=== PATIENT | male | born 1970 | race Caucasian/White ===

== ENCOUNTER 2020-07-18 18:19 | Emergency (ER) | payer BC ==
--- NOTE | 2020-07-18 19:00 | EDM.PDOC ---
ED HPI GENERAL MEDICAL PROBLEM - General Chief Complaint: Lower Extremity Injury/Pain Stated Complaint: L LEG PAIN Time Seen by Provider: 07/18/20 18:42 Source of Information: Reports: Patient, RN Notes Reviewed History Limitations: Reports: No Limitations - History of Present Illness INITIAL COMMENTS - FREE TEXT/NARRATIVE: Patient is a 50-year-old male who presents to the ER for his left calf pain. Patient states that this is been present for roughly 2 weeks, but has progressively worsened since it started. He does note that he got the mold during the COVID-19 vaccine, last dose was on July 02. There is a pinpoint area to his left lower calf, that seems to be more tender than the rest. He notes that it is present at rest, does not seem to worsen when he is walking. He denies any trauma to the area, or any overly strenuous activity that could have aggravated issues. He is concerned about a possible blood clot, so comes to the ER for management. He did take a few doses of Aleve when it initially started hurting, and that seemed to help a little bit. He notes that he has been having some different side effects, which she is attributed to the vaccine he notes that when he woke up the next morning, he could not dorsiflex his left foot, until he took some Aleve. He is also had intermittent fevers, body aches and chills since getting the vaccine. Patient's primary care provider is in [facility]. He denies any other past medical history. He denies pain that travels up his leg, or travels further down. He is able to use his foot in all range of motion. Treatments SIDEHAND: Reports: Acetaminophen Left Lower Posterior Leg Pain Score (Numeric/FACES): 6 - Related Data Allergies Allergy/AdvReac Type Severity Reaction Status Date / Time No Known Allergies Allergy Verified 07/18/20 18:36 Home Meds: Home Meds Levothyroxine 150 mcg PO DAILY 07/18/20 [History] Linaclotide [Linzess] 290 mg PO ASDIRECTED 07/18/20 [History] Olmesartan/Hydrochlorothiazide [Benicar HCT 20-12.5 MG] 1 tab PO DAILY 07/18/20 [History] hydroCHLOROthiazide [Hydrochlorothiazide] 25 mg PO DAILY 07/18/20 [History] Past Medical History Cardiovascular History: Reports: Hypertension Endocrine/Metabolic History: Reports: Hypothyroidism Social & Family History - Tobacco Use Tobacco Use Status *Q: Former Tobacco User Used Tobacco, but Quit: Yes Month/Year Tobacco Last Used: 5 - Caffeine Use Caffeine Use: Reports: Coffee, Soda - Recreational Drug Use Recreational Drug Use: No Review of Systems - Review of Systems Review Of Systems: Comprehensive ROS is negative, except as noted in HPI. ED EXAM, GENERAL - Physical Exam Exam: See Below Exam Limited By: No Limitations General Appearance: Alert, WD/WN, No Apparent Distress Respiratory/Chest: No Respiratory Distress, Lungs Clear, Normal Breath Sounds, No Accessory Muscle Use, Chest Non-Tender Cardiovascular: Normal Peripheral Pulses, Regular Rate, Rhythm, No Edema Peripheral Pulses: 2+: Dorsalis Pedis (L), Dorsalis Pedis (R) Extremities: Normal Inspection, Normal Range of Motion, No Pedal Edema, Normal Capillary Refill, Alona's Sign (Left leg), Leg Pain (left calf) Neurological: Alert, Oriented, Normal Cognition, No Motor/Sensory Deficits Psychiatric: Normal Affect, Normal Mood Skin Exam: Warm, Dry, Intact, Normal Color, No Rash Course - Vital Signs Last Recorded V/S: Last Vital Signs Temp 97.4 F 07/18/20 18:45 Pulse 68 07/18/20 18:45 Resp 20 07/18/20 18:45 BP 152/80 H 07/18/20 18:45 Pulse Ox 98 07/18/20 18:45 - Re-Assessments/Exams Free Text/Narrative Re-Assessment/Exam: 07/18/20 19:01 Patient presents to the ER for the evaluation of his left calf pain. He is specifically worried about a blood clot at this time, we will perform ultrasound for evaluation of blood clot. 07/18/20 20:20 Patient ultrasound has been performed, no signs of a DVT within the left calf. No other abnormalities were appreciated. We will discharge patient home with general conservative recommendations and have him follow-up with his regular care provider for ongoing management. Departure - Departure Time of Disposition: 20:21 Disposition: Home, Self-Care 01 Condition: Good Clinical Impression: Pain of left calf - Discharge Information *PRESCRIPTION DRUG MONITORING PROGRAM REVIEWED*: No *COPY OF PRESCRIPTION DRUG MONITORING REPORT IN PATIENT ROBERTO: No Instructions: Muscle Strain, [id number] Referrals: George Palmer MD [Primary Care Provider] - Forms: ED Department Discharge Additional Instructions: You have been evaluated in the ED for your left calf pain. Your ultrasound demonstrated no sign of a DVT within your left calf. Please use ice/heat as tolerated to the affected area. You may take Tylenol 500 mg or ibuprofen 600mg q6 hrs for pain relief. Please do so until you have a tolerable level of pain with activity. Do not exceed 4000mg Tylenol or 3200mg ibuprofen in a 24 hour time period. Please return to ED if your symptoms should change or worsen. Sepsis Event Note (ED) - Evaluation Sepsis Screening Result: No Definite Risk - Focused Exam Vital Signs: Vital Signs Temp Pulse Resp BP Pulse Ox 07/18/20 18:45 97.4 F 68 20 152/80 H 98
--- NOTE | 2020-07-18 20:14 | US ---
Left lower extremity deep venous ultrasound: Duplex and color Doppler evaluation was obtained of the left common femoral, proximal greater saphenous, superficial femoral, popliteal, posterior tibial and peroneal veins. Right common femoral vein was also evaluated. Posterior calf in area of pain was also evaluated by real-time images. Comparison: No prior venous imaging is available. Findings: Normal phasic flow, augmentation and compression is seen. No ultrasound abnormality is seen within the posterior calf in area of described pain. Impression: 1. No findings of deep venous thrombosis. 2. No abnormality is seen within the posterior left calf. Diagnostic code #1
== END 2020-07-18 20:26 | disposition home or self-care (01) ==
LOC: JD.ED 18:19
DX: M79.662 Pain in left lower leg (principal); E03.9 Hypothyroidism, unspecified; I10 Essential (primary) hypertension; Z79.899 Other long term (current) drug therapy; Z87.891 Personal history of nicotine dependence
CPT/HCPCS: 93971-26-LT; 93971-LT; 99282; 99283-25

== ENCOUNTER 2020-08-06 20:38 | Emergency (ER) | payer BC ==
[2020-08-06] MEDS ORDERED: Sodium Chloride 0.9% 1,000 ML IV SCH (22:00)
--- NOTE | 2020-08-06 22:02 | EDM.PDOC ---
ED HPI GENERAL MEDICAL PROBLEM - General Chief Complaint: Lower Extremity Injury/Pain Stated Complaint: POSS BLOOD CLOT Time Seen by Provider: 08/06/20 21:13 Source of Information: Reports: Patient, Significant Other (Girlfriend) History Limitations: Reports: No Limitations - History of Present Illness INITIAL COMMENTS - FREE TEXT/NARRATIVE: Mr. Dave is a very pleasant 50-year-old gentleman who is now sent over from the walk-in clinic to have us evaluate him for a blood clot. The patient states that he received his first Moderna COVID vaccination on 06/04/2020, and his second on 07/02/2020. He states that he had some rapid palpitations following his first vaccination. Sometime between 07/04/2020 and 07/07/2020, he started having muscle pain in various places, that kept moving around. His states that he would also get winded easily. No chest pain. He was seen in this ED on 07/18/2020 with a complaint at that time of 2 weeks of pain in his left calf. He was found to have tenderness in a discrete area to his posterior calf. Work-up included a Doppler ultrasound of the left calf, which returned negative. He states that he subsequently followed up with his PCP in [place] on 07/23/2020, where some blood work was performed and was reportedly unremarkable. Nevertheless, he was prescribed a 6-day course of tapering steroids. He states that early in the course of the steroids, his symptoms improved, however, they returned by the time he was finishing the steroids. The patient states that he developed right calf pain this past 08/03/2020. He called his PCP about it today, and was instructed to go to the walk-in clinic to get a chest x-ray and D-dimer. He did. He was told that his chest x- ray was unremarkable, but that his D-dimer returned mildly elevated at 0.84, therefore he was called back by the walk-in clinic and instructed to go to the ER to be checked for a blood clot. Here in the ED, the patient is found to be hemodynamically stable, afebrile, saturating 98% on room air. He reports posterior right calf pain, but denies pain elsewhere. He appears to be comfortable, in no acute distress. Prior to early June, the patient denies having a recent fever, chills, sore throat, ear pain, nasal or sinus congestion, cough, dyspnea, chest pain, palpitations, nausea, vomiting, constipation, diarrhea, abdominal pain, urinary symptoms, recent weight gain or weight loss, recent bloody bowel movements or black bowel movements, recent joint aches, headaches, or rashes. The patient states that he has not been tested for COVID-19. The patient's PCP is Dr. George Palmer. His Geriatric Nursing Assistant is Dr. Ponce Solis. Right Lower Posterior Leg Pain Score (Numeric/FACES): 3 - Related Data Allergies Allergy/AdvReac Type Severity Reaction Status Date / Time No Known Allergies Allergy Verified 08/06/20 20:56 Home Meds: Home Meds Levothyroxine 175 mcg PO DAILY 07/18/20 [History] Linaclotide [Linzess] 290 mg PO ASDIRECTED PRN 07/18/20 [History] Olmesartan/Hydrochlorothiazide [Benicar HCT 20-12.5 MG] 1 tab PO DAILY 07/18/20 [History] hydroCHLOROthiazide [Hydrochlorothiazide] 25 mg PO DAILY 07/18/20 [History] Cholecalciferol (Vitamin D3) [Vitamin D] 5,000 tab PO DAILY 08/06/20 [History] Magnesium 250 mg PO DAILY 08/06/20 [History] Multivit-Min36/Iron/Folic Acid [Geritol Complete Tablet] 1 tab PO DAILY 08/06/20 [History] Past Medical History Cardiovascular History: Reports: Hypertension Gastrointestinal History: Reports: Colon Polyp, GERD (untreated), Irritable Bowel Syndrome Endocrine/Metabolic History: Reports: Hypothyroidism, Obesity/BMI 30+ - Infectious Disease History Infectious Disease History: Reports: Chicken Pox - Past Surgical History HEENT Surgical History: Reports: Adenoidectomy, Oral Surgery (dental extractions), Tonsillectomy GI Surgical History: Reports: Colonoscopy (x around 8), EGD (x 1 or 2) Neurological Surgical History: Reports: Lumbar Spine (Robert with subsequent removal) Dermatological Surgical History: Reports: Other (See Below) (Shrapnel extracton from face. Lipomas removed from multiple sites.) Social & Family History - Tobacco Use Tobacco Use Status *Q: Former Tobacco User Years of Tobacco use: 30 Packs/Tins Daily: 1 Month/Year Tobacco Last Used: Quit Feb 2005 Tobacco Use Comment: Started smoking 1985 - Caffeine Use Caffeine Use: Reports: Soda - Alcohol Use Alcohol Use History: Yes Alcohol Use Frequency: Socially - Recreational Drug Use Recreational Drug Use: No - Living Situation & Occupation Living situation: Reports: , with Significant Other (Girlfriend + her daughter) Occupation: Employed ([employer]) ED ROS GENERAL - Review of Systems Review Of Systems: Comprehensive ROS is negative, except as noted in HPI. ED EXAM, GENERAL - Physical Exam Exam: See Below Exam Limited By: No Limitations General Appearance: Alert, WD/WN, No Apparent Distress Eye Exam: Bilateral Eye: EOMI, Normal Inspection Ears: Normal External Exam, Hearing Grossly Normal Nose: Normal Inspection Throat/Mouth: Normal Inspection, Normal Lips, Normal Voice, No Airway Compromise Head: Atraumatic, Normocephalic Neck: Normal Inspection, Full Range of Motion Respiratory/Chest: No Respiratory Distress, Lungs Clear, Normal Breath Sounds, No Accessory Muscle Use Cardiovascular: Normal Peripheral Pulses, Regular Rate, Rhythm, No Gallop, No JVD, No Murmur, No Rub Peripheral Pulses: 3+: Radial (L), Radial (R) GI/Abdominal: Normal Bowel Sounds, Soft, Non-Tender, No Organomegaly, No Distention, No Abnormal Bruit, No Mass Back Exam: Normal Inspection, Full Range of Motion, NT Extremities: Normal Range of Motion, Normal Capillary Refill, Other (Significant tenderness to palpation of a discrete area within the patient's mid right calf, with no associated visible abnormalities, such as swelling, erythema, ecchymosis, or abrasion. Trace pretibial edema bilaterally. Neurovascular status of both lower extremities is intact.) Neurological: Alert, Oriented, Normal Cognition, No Motor/Sensory Deficits Psychiatric: Normal Affect Skin Exam: Warm, Dry, Intact, Normal Color, No Rash #1 Interpretation EKG Date: 08/06/20 Time: 22:01 Rhythm: NSR Rate (Beats/Min): 71 Kenna: Normal P-Wave: Present QRS: Other (Early transition) ST-T: Normal QT: Normal Comparison: NA - No Prior EKG Course - Vital Signs Last Recorded V/S: Last Vital Signs Temp 36.1 C 08/06/20 20:51 Pulse 91 08/06/20 20:51 Resp 20 08/06/20 20:51 BP 139/70 08/06/20 20:51 Pulse Ox 98 08/06/20 20:51 - Orders/Labs/Meds Orders: Active Orders 24 hr Category Date Time Status EKG Documentation Completion [RC] STAT Care 08/06/20 21:51 Active Ang Chest [CT] Stat Exams 08/06/20 21:53 Taken VL Duplex Lwr Ext Veins Ltd Rt [US] Stat Exams 08/06/20 21:55 Taken Sodium Chloride 0.9% [Normal Saline] 1,000 ml Med 08/06/20 22:00 Active IV ASDIRECTED Medication Orders Sodium Chloride (Normal Saline) 1,000 mls @ 150 mls/hr IV ASDIRECTED MARBIN Last Admin: 08/06/20 22:04 Dose: 150 mls/hr Documented by: GAYATRI Labs: Laboratory Tests 08/06/20 08/06/20 08/06/20 Range/Units 21:57 21:57 21:57 WBC 7.32 (4.23-9.07) K/mm3 RBC 4.63 (4.63-6.08) M/mm3 Hgb 12.5 L (13.7-17.5) gm/dl Hct 39.2 L (40.1-51.0) % MCV 84.7 (79.0-92.2) fl MCH 27.0 (25.7-32.2) pg MCHC 31.9 L (32.2-35.5) g/dl RDW Std Deviation 43.1 (35.1-43.9) fL Plt Count 233 (163-337) K/mm3 MPV 9.0 L (9.4-12.3) fl Neutrophils % (Manual) 61 H (40-60) % Band Neutrophils % 0 (0-10) % Lymphocytes % (Manual) 30 (20-40) % Atypical Lymphs % 0 % Monocytes % (Manual) 7 (2-10) % Eosinophils % (Manual) 2 (0.8-7.0) % Basophils % (Manual) 0 L (0.2-1.2) Platelet Estimate Adequate RBC Morph Comment Normal Sodium 139 (136-145) mEq/L Potassium 3.7 (3.5-5.1) mEq/L Chloride 103 (98-107) mEq/L Carbon Dioxide 27 (21-32) mEq/L Anion Gap 12.7 (5-15) BUN 27 H (7-18) mg/dL Creatinine 1.1 (0.7-1.3) mg/dL Est Cr Clr Drug Dosing 84.80 mL/min Estimated GFR (MDRD) > 60 (>60) mL/min BUN/Creatinine Ratio 24.5 H (14-18) Glucose 115 H (70-99) mg/dL Calcium 8.4 L (8.5-10.1) mg/dL Magnesium 3.2 H (1.8-2.4) mg/dL Total Bilirubin 0.3 (0.2-1.0) mg/dL AST 33 (15-37) U/L ALT 62 (16-63) U/L Alkaline Phosphatase 88 (46-116) U/L Creatine Kinase 142 (39-308) U/L Troponin I 1.488 H* (0.00-0.056) ng/mL C-Reactive Protein 4.6 H* (<1.0) mg/dL NT-Pro-B Natriuret Pep 23 (0-125) pg/mL Total Protein 7.2 (6.4-8.2) g/dl Albumin 3.1 L (3.4-5.0) g/dl Globulin 4.1 gm/dL Albumin/Globulin Ratio 0.8 L (1-2) TSH 3rd Generation 2.001 (0.358-3.74) uIU/mL SARS-CoV-2 RNA (PETER) (NEGATIVE) 08/06/20 Range/Units 22:05 WBC (4.23-9.07) K/mm3 RBC (4.63-6.08) M/mm3 Hgb (13.7-17.5) gm/dl Hct (40.1-51.0) % MCV (79.0-92.2) fl MCH (25.7-32.2) pg MCHC (32.2-35.5) g/dl RDW Std Deviation (35.1-43.9) fL Plt Count (163-337) K/mm3 MPV (9.4-12.3) fl Neutrophils % (Manual) (40-60) % Band Neutrophils % (0-10) % Lymphocytes % (Manual) (20-40) % Atypical Lymphs % % Monocytes % (Manual) (2-10) % Eosinophils % (Manual) (0.8-7.0) % Basophils % (Manual) (0.2-1.2) Platelet Estimate RBC Morph Comment Sodium (136-145) mEq/L Potassium (3.5-5.1) mEq/L Chloride (98-107) mEq/L Carbon Dioxide (21-32) mEq/L Anion Gap (5-15) BUN (7-18) mg/dL Creatinine (0.7-1.3) mg/dL Est Cr Clr Drug Dosing mL/min Estimated GFR (MDRD) (>60) mL/min BUN/Creatinine Ratio (14-18) Glucose (70-99) mg/dL Calcium (8.5-10.1) mg/dL Magnesium (1.8-2.4) mg/dL Total Bilirubin (0.2-1.0) mg/dL AST (15-37) U/L ALT (16-63) U/L Alkaline Phosphatase (46-116) U/L Creatine Kinase (39-308) U/L Troponin I (0.00-0.056) ng/mL C-Reactive Protein (<1.0) mg/dL NT-Pro-B Natriuret Pep (0-125) pg/mL Total Protein (6.4-8.2) g/dl Albumin (3.4-5.0) g/dl Globulin gm/dL Albumin/Globulin Ratio (1-2) TSH 3rd Generation (0.358-3.74) uIU/mL SARS-CoV-2 RNA (PETER) Negative (NEGATIVE) Meds: Medications Generic Name Dose Route Start Last Admin Trade Name Riccoq PRN Reason Stop Dose Admin Sodium Chloride 1,000 mls @ 150 mls/hr 08/06/20 22:00 08/06/20 22:04 Normal Saline IV 150 mls/hr ASDIRECTED [facility] Administration - Re-Assessments/Exams Free Text/Narrative Re-Assessment/Exam: 08/06/20 21:56 As above, the patient began having muscle pain in various places, along with being winded easily, since approximately 07/07/2020, following his second Moderna COVID vaccine. He was seen in this ED on 07/18/2020 for evaluation of left calf pain. A doppler ultrasound was negative. He followed up with his PCP in [place] on 07/23/2020, where some blood work was reportedly unremarkable, nevertheless, he was then treated with a 6-day tapering dose of steroids. He states that his symptoms improved initially, but had returned by the time he was finishing the steroids. He developed right calf pain this past Tuesday, therefore called his doctor today, and was instructed to go to the walk-in clinic to request a chest x-ray and D-dimer. The chest x-ray was reportedly negative, but the D-dimer returned as mildly elevated at 0.84. The patient was therefore called by the walk-in clinic with instruction of going directly to the ED to be evaluated for blood clot. On examination, the patient has significant tenderness to a discrete area within his mid right calf, with no tenderness to the remainder of the calf, and the remainder of his physical exam being unremarkable. The patient states that his right leg is edematous, although on examination, I do not see that he has any more edema to his right leg than his left. In reviewing this patient's case, it appears that the evaluations of his symptoms has been piecemeal, therefore, for today's purposes, I am recommending that we perform a number of tests to rule out a variety of conditions. The patient can then follow-up with his PCP in [place], who can then pick up man where we left off. I have therefore ordered numerous blood tests, a swab for the SARS-CoV-2 virus, a Doppler ultrasound of his right lower extremity, a CT angiogram of his chest, and an ECG. In the meantime, the patient will be given IV fluid. 08/06/20 23:34 The patient's CBC is remarkable for an H/H slightly depressed at 12.5/39.2, with the remainder of his CBC being unremarkable. His CMP is remarkable for a BUN slightly elevated 27, but with a Cr within normal limits at 1.1, and mild hyperglycemia of 115, and the remainder of his CMP being unremarkable. His magnesium level is elevated at 3.2. His TSH is within normal limits at 2.001. His CRP is elevated at 4.6. His troponin is elevated at 1.488. His pro-BNP is within normal limits at 23. His CPK is within normal limits at 1.42. His swab for the SARS-CoV-2 virus is negative. 08/06/20 23:51 Doppler ultrasound of the right lower extremity is read by [facility] as "Unremarkable ultrasound of the right lower extremity." 08/07/20 00:00 CT angiogram of the chest is read by [facility] as "No evidence of pulmonary embolus." 08/07/20 00:11 Test results discussed with the patient and his girlfriend. As above, today's work-up is completely unremarkable, with the exception of a mildly elevated CRP, and a significantly elevated troponin. 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 This may explain the myriad symptoms that he has been having since. I would like to discuss this with a [facility] [employer]. The patient prefers [facility]. 08/07/20 00:31 Case discussed with Eloise at [facility] at 00:23. Case then discussed with Dr. Pak, [facility] at [facility], at 00:28. 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 He recommended that the patient undergo an outpatient echocardiogram, then follow-up with a [facility] [employer]. 08/07/20 00:36 I relayed my conversation with Dr. Pak to the patient and his girlfriend. The patient is agreeable. We will have him follow-up with Dr. Palmer, who can order an outpatient echocardiogram, and also test the patient for COVID antibodies, which I explained to them is not available through the ED. She can then refer the patient to a [facility] of her choice. Departure - Departure Time of Disposition: 00:37 Disposition: Home, Self-Care 01 Condition: Good Clinical Impression: Elevated troponin, Right calf pain - Discharge Information *PRESCRIPTION DRUG MONITORING PROGRAM REVIEWED*: Not Applicable *COPY OF PRESCRIPTION DRUG MONITORING REPORT IN PATIENT ROBERTO: Not Applicable Referrals: George Palmer MD [Primary Care Provider] - Ponce Solis MD [Ordering Only Provider] - Forms: ED Department Discharge Additional Instructions: You were seen in the emergency room for right calf pain with a mildly elevated D-dimer. Work-up in the ER included numerous blood tests, a swab for the SARS-CoV-2 virus, a Doppler ultrasound of your right lower extremity, a CT angiogram of your chest, and an ECG. Your work-up found your CRP (a measure of inflammation) to be mildly elevated at 4.6, and your troponin (a heart enzyme) to be significantly elevated at 1.488. The remainder of your work-up was unremarkable. You do not have a blood clot in your lungs or in your leg. 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 Your case was discussed with the [facility] [employer] Dr. Pak, who recommended that you undergo an outpatient echocardiogram, followed by meeting with a [facility] as an outpatient. We recommend that you follow-up with your PCP, Dr. George Palmer, at the next available appointment. She can arrange for an outpatient echocardiogram, as well as testing you for COVID antibodies. If present, this would confirm that you had COVID-19. She can also arrange to have you seen by a [facility] of her choice. If any other problems, please do not hesitate to return to the ER. Sepsis Event Note (ED) - Evaluation Sepsis Screening Result: No Definite Risk - Focused Exam Vital Signs: Vital Signs Temp Pulse Resp BP Pulse Ox 08/06/20 20:51 36.1 C 91 20 139/70 98 - My Orders Last 24 Hours: My Active Orders 08/06/20 21:51 EKG Documentation Completion [RC] STAT 08/06/20 21:53 Ang Chest [CT] Stat 08/06/20 21:55 VL Duplex Lwr Ext Veins Ltd Rt [US] Stat 08/06/20 22:00 Sodium Chloride 0.9% [Normal Saline] 1,000 ml IV ASDIRECTED - Assessment/Plan Last 24 Hours: My Active Orders 08/06/20 21:51 EKG Documentation Completion [RC] STAT 08/06/20 21:53 Ang Chest [CT] Stat 08/06/20 21:55 VL Duplex Lwr Ext Veins Ltd Rt [US] Stat 08/06/20 22:00 Sodium Chloride 0.9% [Normal Saline] 1,000 ml IV ASDIRECTED
[2020-08-06] MEDS ORDERED: Acetaminophen/HYDROcodone 325-5 MG Tab PO ONE (22:12)
--- NOTE | 2020-08-07 07:48 | US ---
Right lower extremity deep venous ultrasound: Duplex and color Doppler evaluation was obtained of the right common femoral, proximal greater saphenous, superficial femoral, popliteal, posterior tibial and peroneal veins. Left common femoral vein was also evaluated. Comparison: Minimal portion of the right-sided veins were evaluated on left venous ultrasound of 07/18/20. Findings: Normal phasic flow, augmentation and compression are seen within the deep veins. Additional real-time images were obtained in the area of the right calf described as area of discomfort which show no discrete ultrasound finding. Impression: 1. No findings of deep venous thrombosis within the right lower extremity or left common femoral vein. 2. No ultrasound abnormality is seen within the area of right calf described as area of pain. Diagnostic code #1 I agree with preliminary report from patricia, finalized on 08/07/20, 12:19 AM CDT, code 1
--- NOTE | 2020-08-07 07:54 | CT ---
CT chest Technique: Multiple axial sections were obtained from above the lung apices inferiorly through the lung bases. Intravenous contrast was utilized. Study has been performed as a pulmonary angiogram protocol. Comparison: Prior MRI chest study of 01/29/20 Pulmonary arteries are fairly well opacified. No filling defects are seen to indicate pulmonary embolism. Minimal atherosclerotic change is seen within the thoracic aorta. Thoracic aorta shows no aneurysm. Mediastinum and hilar region shows small lymph nodes with no findings of adenopathy. No pericardial thickening is seen. Visualized upper abdominal structures show no acute abnormality. Lung window settings were reviewed which show a slight density within the lingula most likely representing minimal atelectasis. Lungs otherwise are clear with no acute parenchymal change being seen. Bone window settings were reviewed. Minimal degenerative change is seen within the spine. No acute osseous abnormality is appreciated. Impression: 1. Very slight atelectasis within the lingula. 2. No findings of pulmonary embolism. 3. Nothing acute is seen on CT study of the chest. Diagnostic code #2 I agree with preliminary report from [facility], finalized on 08/07/20, 12:57 AM CDT, code 1
== END 2020-08-07 00:01 | disposition home or self-care (01) ==
LOC: JD.ED 20:38
DX: M79.661 Pain in right lower leg (principal); R79.89 Other specified abnormal findings of blood chemistry; I10 Essential (primary) hypertension; E03.9 Hypothyroidism, unspecified; E66.9 Obesity, unspecified; Z20.822 Contact with and (suspected) exposure to COVID-19; Z87.891 Personal history of nicotine dependence; Z68.30 Body mass index [BMI] 30.0-30.9, adult
CPT/HCPCS: 36415; 71275; 80053; 82550; 83735; 83880; 84443; 84484; 85007; 85027; 86140; 87635; 93005; 93971; 99284; J7030; 93010; U0002

== ENCOUNTER 2020-08-22 18:00 | Emergency (ER) | payer BC ==
[2020-08-22] MEDS ORDERED: Sodium Chloride 0.9% 10 ML Syringe FLUSH PRN ×2 (19:06→21:04)
--- NOTE | 2020-08-22 20:03 | EDM.PDOC ---
ED HPI GENERAL MEDICAL PROBLEM - General Chief Complaint: Respiratory Problem Stated Complaint: RAPID HEART RATE /SOB SENT BY [facility] Time Seen by Provider: 08/22/20 18:51 Source of Information: Reports: Patient History Limitations: Reports: No Limitations - History of Present Illness INITIAL COMMENTS - FREE TEXT/NARRATIVE: The patient presents from the walk in clinic for headache, generalized weakness, fever, chills and no energy. This all started back in june after his second [employer] COVID vaccine. He got that on 07/02/20. He had muscle pain in different areas and shortness of breath. He has no chest pain. He was seen in our ER on 07/18/20 for left calf pain. The US was negative for DVT. He followed up with his PCP Dr Palmer in [place] on 07/23/20. He did more labs that looked good. He put him on 6 days of steroids and for a few days he felt good until he came to the end of taking them and he was back to the same symptoms. On 08/03/20 he had some right calf pain and went to the walk in clinic a D-dimer was done and it was slightly elevated at 0.84. He went to our ER on 08/06/20 for the right calf pain, and shortness of breath. He had an extensive work up that included an US of his leg, CTA of his chest, EKG and labs. The US was negative for DVT. His CT angio of his chest showed no PE or pneumonia. His CRP was elevated at 4.6. His troponin was elevated at 1.488. The ER doctor here consulted [facility] cardiology and talked with Dr Pak. 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 He saw his primary care doctor and an echo was done. He put him back on some steroids for 6 days. Again he felt good for a few days and then when they wear off he is right back to feeling back. This evening he has a headache, fever or 101.9, chills, shortness of breath, generalized weakness and no energy. He has no chest pain, cough, abdominal pain, nausea, vomiting or diarrhea. He has no appetite. His girlfriend says he has been confused today. Onset: Gradual Duration: Day(s): Location: Reports: Head Quality: Reports: Sharp Severity: Severe Improves with: Reports: None Worsens with: Reports: None Associated Symptoms: Denies: Chest Pain, Cough Headache Pain Score (Numeric/FACES): 10 - Related Data Allergies Allergy/AdvReac Type Severity Reaction Status Date / Time No Known Allergies Allergy Verified 08/22/20 18:12 Home Meds: Home Meds Levothyroxine 175 mcg PO DAILY 07/18/20 [History] Linaclotide [Linzess] 290 mg PO ASDIRECTED PRN 07/18/20 [History] Olmesartan/Hydrochlorothiazide [Benicar HCT 20-12.5 MG] 1 tab PO DAILY 07/18/20 [History] hydroCHLOROthiazide [Hydrochlorothiazide] 25 mg PO DAILY 07/18/20 [History] Cholecalciferol (Vitamin D3) [Vitamin D] 5,000 tab PO DAILY 08/06/20 [History] Magnesium 250 mg PO DAILY 08/06/20 [History] Multivit-Min36/Iron/Folic Acid [Geritol Complete Tablet] 1 tab PO DAILY 08/06/20 [History] Past Medical History Cardiovascular History: Reports: Hypertension Gastrointestinal History: Reports: Colon Polyp, GERD, Irritable Bowel Syndrome Endocrine/Metabolic History: Reports: Hypothyroidism, Obesity/BMI 30+ - Infectious Disease History Infectious Disease History: Reports: Chicken Pox - Past Surgical History HEENT Surgical History: Reports: Adenoidectomy, Oral Surgery, Tonsillectomy GI Surgical History: Reports: Colonoscopy, EGD Neurological Surgical History: Reports: Lumbar Spine Dermatological Surgical History: Reports: Other (See Below) Social & Family History - Family History Family Medical History: No Pertinent Family History - Tobacco Use Tobacco Use Status *Q: Former Tobacco User Years of Tobacco use: 20 Packs/Tins Daily: 1 Used Tobacco, but Quit: Yes Month/Year Tobacco Last Used: 2015 - Caffeine Use Caffeine Use: Reports: Coffee - Recreational Drug Use Recreational Drug Use: No - Living Situation & Occupation Living situation: Reports: , with Significant Other (Girlfriend + her daughter) Occupation: Employed ([employer]) ED [employer] [facility] - Review of Systems Review Of Systems: See Below Constitutional: Reports: Fever, Chills, Malaise, Weakness, Fatigue HEENT: Reports: No Symptoms Respiratory: Reports: Shortness of Breath. Denies: Cough Cardiovascular: Reports: No Symptoms Endocrine: Reports: Fatigue GI/Abdominal: Reports: Anorexia. Denies: Abdominal Pain, Diarrhea, Nausea, Vomiting : Reports: No Symptoms Musculoskeletal: Reports: No Symptoms ED EXAM, GENERAL - Physical Exam Exam: See Below Exam Limited By: No Limitations General Appearance: Alert, No Apparent Distress Ears: Normal External Exam Nose: Normal Inspection Head: Atraumatic, Normocephalic Neck: Normal Inspection Respiratory/Chest: No Respiratory Distress, Lungs Clear, Normal Breath Sounds Cardiovascular: Regular Rate, Rhythm, No Edema, No Murmur GI/Abdominal: Soft, Non-Tender, No Organomegaly, No Mass Back Exam: Normal Inspection Extremities: Normal Inspection Neurological: Alert, Oriented, No Motor/Sensory Deficits #1 Interpretation EKG Date: 08/22/20 Time: 19:26 Rhythm: NSR Rate (Beats/Min): 84 [place]: Normal P-Wave: Present QRS: Normal ST-T: Elevated (Normal early repol) QT: Normal Course - Vital Signs Last Recorded V/S: Last Vital Signs Temp 96.5 F L 08/22/20 18:13 Pulse 95 08/22/20 18:13 Resp 20 08/22/20 18:13 BP 126/64 08/22/20 18:13 Pulse Ox 97 08/22/20 18:13 - Orders/Labs/Meds Orders: Active Orders 24 hr Category Date Time Status Cardiac Monitoring [RC] . DIRECTED Care 08/22/20 19:06 Active EKG Documentation Completion [RC] STAT Care 08/22/20 19:07 Active Peripheral IV Care [RC] . DIRECTED Care 08/22/20 19:07 Active Peripheral IV Care [RC] . DIRECTED Care 08/22/20 21:05 Active CULTURE BLOOD [BC] Stat Lab 08/22/20 21:54 Ordered CULTURE BLOOD [BC] Stat Lab 08/22/20 21:54 Ordered LACTIC ACID [CHEM] Stat Lab 08/22/20 21:54 Ordered Sodium Chloride 0.9% [Normal Saline] 1,000 ml Med 08/22/20 22:00 Active IV ASDIRECTED Sodium Chloride 0.9% [Normal Saline] 100 ml Med 08/22/20 21:00 Active IV ASDIRECTED Sodium Chloride 0.9% [Saline Flush] Med 08/22/20 19:06 Active 10 ml FLUSH ASDIRECTED PRN Sodium Chloride 0.9% [Saline Flush] Med 08/22/20 21:04 Active 10 ml FLUSH ASDIRECTED PRN Sodium Chloride 0.9% [Saline Flush] Med 08/22/20 21:00 Active 10 ml FLUSH BOLUS Blood Culture x2 Reflex Set [OM.PC] Stat Ot 08/22/20 21:54 Ordered Peripheral IV Insertion Adult [OM.PC] Routine Oth 08/22/20 21:04 Ordered Peripheral IV Insertion Adult [OM.PC] Stat Ot 08/22/20 19:06 Ordered Medication Orders Sodium Chloride (Normal Saline) 100 mls @ 60 drops/min IV ASDIRECTED MARBIN Last Admin: 08/22/20 21:03 Dose: 60 drops/min Documented by: ONEIGIN Sodium Chloride (Normal Saline) 1,000 mls @ 150 mls/hr IV ASDIRECTED MARBIN Last Admin: 08/22/20 22:11 Dose: 150 mls/hr Documented by: DANIELA Sodium Chloride (Sodium Chloride 0.9% 10 Ml Syringe) 10 ml FLUSH ASDIRECTED PRN PRN Reason: Keep Vein Open Last Admin: 08/22/20 19:39 Dose: 10 ml Documented by: DANIELA Sodium Chloride (Sodium Chloride 0.9% 10 Ml Syringe) 10 ml FLUSH BOLUS MARBIN Last Admin: 08/22/20 21:03 Dose: 10 ml Documented by: KEHINDEIGIN Sodium Chloride (Sodium Chloride 0.9% 10 Ml Syringe) 10 ml FLUSH ASDIRECTED PRN PRN Reason: Keep Vein Open Last Admin: 08/22/20 21:45 Dose: 10 ml Documented by: FREDRICK Labs: Laboratory Tests 08/22/20 08/22/20 08/22/20 Range/Units 18:26 19:45 19:45 WBC 10.02 H (4.23-9.07) K/mm3 RBC 4.72 (4.63-6.08) M/mm3 Hgb 12.8 L (13.7-17.5) gm/dl Hct 38.6 L (40.1-51.0) % MCV 81.8 (79.0-92.2) fl MCH 27.1 (25.7-32.2) pg MCHC 33.2 (32.2-35.5) g/dl RDW Std Deviation 42.7 (35.1-43.9) fL Plt Count 227 (163-337) K/mm3 MPV 8.8 L (9.4-12.3) fl Neut % (Auto) 73.1 H (34.0-67.9) % Lymph % (Auto) 17.1 L (21.8-53.1) % [place] % (Auto) 9.0 (5.3-12.2) % Eos % (Auto) 0.6 L (0.8-7.0) Baso % (Auto) 0.2 (0.1-1.2) % Neut # (Auto) 7.33 H (1.78-5.38) K/mm3 Lymph # (Auto) 1.71 (1.32-3.57) K/mm3 [place] # (Auto) 0.90 H (0.30-0.82) K/mm3 Eos # (Auto) 0.06 (0.04-0.54) K/mm3 Baso # (Auto) 0.02 (0.01-0.08) K/mm3 Manual Slide Review Normal smear ESR 31 H (0-15) mm/hr PT (9.7-12.0) SECONDS INR APTT (21.7-31.4) SECONDS D-Dimer, Quantitative (0.19-0.50) mg/L Sodium (136-145) mEq/L Potassium (3.5-5.1) mEq/L Chloride (98-107) mEq/L Carbon Dioxide (21-32) mEq/L Anion Gap (5-15) BUN (7-18) mg/dL Creatinine (0.7-1.3) mg/dL Est Cr Clr Drug Dosing mL/min Estimated GFR (MDRD) (>60) mL/min BUN/Creatinine Ratio (14-18) Glucose (70-99) mg/dL Calcium (8.5-10.1) mg/dL Total Bilirubin (0.2-1.0) mg/dL AST (15-37) U/L ALT (16-63) U/L Alkaline Phosphatase (46-116) U/L Troponin I (0.00-0.056) ng/mL C-Reactive Protein (<1.0) mg/dL NT-Pro-B Natriuret Pep (0-125) pg/mL Total Protein (6.4-8.2) g/dl Albumin (3.4-5.0) g/dl Globulin gm/dL Albumin/Globulin Ratio (1-2) SARS-CoV-2 RNA (PETER) Negative (NEGATIVE) 08/22/20 08/22/20 08/22/20 Range/Units 19:45 19:45 19:45 WBC (4.23-9.07) K/mm3 RBC (4.63-6.08) M/mm3 Hgb (13.7-17.5) gm/dl Hct (40.1-51.0) % MCV (79.0-92.2) fl MCH (25.7-32.2) pg MCHC (32.2-35.5) g/dl RDW Std Deviation (35.1-43.9) fL Plt Count (163-337) K/mm3 MPV (9.4-12.3) fl Neut % (Auto) (34.0-67.9) % Lymph % (Auto) (21.8-53.1) % [place] % (Auto) (5.3-12.2) % Eos % (Auto) (0.8-7.0) Baso % (Auto) (0.1-1.2) % Neut # (Auto) (1.78-5.38) K/mm3 Lymph # (Auto) (1.32-3.57) K/mm3 [place] # (Auto) (0.30-0.82) K/mm3 Eos # (Auto) (0.04-0.54) K/mm3 Baso # (Auto) (0.01-0.08) K/mm3 Manual Slide Review ESR (0-15) mm/hr PT 11.9 (9.7-12.0) SECONDS INR 1.11 APTT 26.4 (21.7-31.4) SECONDS D-Dimer, Quantitative 1.01 H (0.19-0.50) mg/L Sodium 132 L (136-145) mEq/L Potassium 3.7 (3.5-5.1) mEq/L Chloride 97 L (98-107) mEq/L Carbon Dioxide 24 (21-32) mEq/L Anion Gap 14.7 (5-15) BUN 26 H (7-18) mg/dL Creatinine 1.4 H (0.7-1.3) mg/dL Est Cr Clr Drug Dosing 64.53 mL/min Estimated GFR (MDRD) 54 (>60) mL/min BUN/Creatinine Ratio 18.6 H (14-18) Glucose 97 (70-99) mg/dL Calcium 8.6 (8.5-10.1) mg/dL Total Bilirubin 0.8 (0.2-1.0) mg/dL AST 18 (15-37) U/L ALT 46 (16-63) U/L Alkaline Phosphatase 92 (46-116) U/L Troponin I 0.525 H* (0.00-0.056) ng/mL C-Reactive Protein 10.2 H* (<1.0) mg/dL NT-Pro-B Natriuret Pep 123 (0-125) pg/mL Total Protein 7.3 (6.4-8.2) g/dl Albumin 2.9 L (3.4-5.0) g/dl Globulin 4.4 gm/dL Albumin/Globulin Ratio 0.7 L (1-2) SARS-CoV-2 RNA (PETER) (NEGATIVE) Meds: Medications Generic Name Dose Route Start Last Admin Trade Name Freq PRN Reason Stop Dose Admin Sodium Chloride 100 mls @ 60 drops/min 08/22/20 21:00 08/22/20 21:03 Normal Saline IV 60 drops/min ASDIRECTED MARBIN Administration Sodium Chloride 1,000 mls @ 150 mls/hr 08/22/20 22:00 08/22/20 22:11 Normal Saline IV 150 mls/hr ASDIRECTED MARBIN Administration Sodium Chloride 10 ml 08/22/20 19:06 08/22/20 19:39 Sodium Chloride 0.9% 10 Ml Syringe FLUSH 10 ml ASDIRECTED PRN Administration Keep Vein Open Sodium Chloride 10 ml 08/22/20 21:00 08/22/20 21:03 Sodium Chloride 0.9% 10 Ml Syringe FLUSH 10 ml BOLUS MARBIN Administration Sodium Chloride 10 ml 08/22/20 21:04 08/22/20 21:45 Sodium Chloride 0.9% 10 Ml Syringe FLUSH 10 ml ASDIRECTED PRN Administration Keep Vein Open Discontinued Medications Generic Name Dose Route Start Last Admin Trade Name Freq PRN Reason Stop Dose Admin Hydromorphone HCl 0.5 mg 08/22/20 21:12 08/22/20 21:22 Hydromorphone 0.5 Mg/0.5 Ml Syringe IVPUSH 08/22/20 21:13 0.5 mg ONETIME ONE Administration Iopamidol 100 ml 08/22/20 20:48 08/22/20 21:03 Iopamidol 755 Mg/Ml 100 Ml Bottle IVPUSH 08/22/20 20:49 100 ml ONETIME ONE Administration Methylprednisolone Sodium Succinate 125 mg 08/22/20 21:49 08/22/20 22:04 Methylprednisolone Sodium Succinate 125 Mg/2 Ml Sdv IVPUSH 08/22/20 21:50 125 mg ONETIME ONE Administration - Re-Assessments/Exams Free Text/Narrative Re-Assessment/Exam: 08/22/20 20:05 I ordered an IV saline lock, EKG, CT of his head, CT angio of his chest and labs. His EKG shows a NSR with no acute changes. 08/22/20 22:20 His WBC was elevated at 10.02. His ESR is elevated at 31. His D-dimer is elevated at 1.01. His Na is low at 132. His creatinine is elevated at 1.4. his troponin is elevated at 0.525. His CRP is elevated at 10.2. His COVID is negative. The CT of his head shows nothing acute. The CT angio of his chest shows no PE or pneumonia. There is some atalectasis at the [place]. He still has a severe headache. I ordered some dilaudid for that. His troponin is better from then the 1.488 from the 9th but still elevated. I am concerned he may have a vasculitis. I ordered some solu-medrol 125mg IV. I have added blood cultures and lactic acid. I feel he needs to be admitted but not here somewhere that has multispecialty care and possibly an MRI. I called [facility] in [place] and talked with Dr Sales the hospitalist auction clerk and she accepted the patient. He will be going by ambulance. He had more pain so I ordered more dilaudid 1mg IV. Departure - Departure Time of Disposition: 22:35 Disposition: DC/Tfer to [facility] 02 Condition: Fair Clinical Impression: Elevated troponin, Fever, unknown origin, Renal insufficiency Headache Qualifiers: Headache type: other headache syndrome Qualified Code(s): G44.89 - Other headache syndrome - Discharge Information Referrals: George Palmer MD [Primary Care Provider] - Forms: ED Department Discharge Sepsis Event Note (ED) - Evaluation Sepsis Screening Result: Possible Sepsis Risk - Focused Exam Vital Signs: Vital Signs Temp Pulse Resp BP Pulse Ox 08/22/20 18:13 96.5 F L 95 20 126/64 97 - My Orders Last 24 Hours: My Active Orders 08/22/20 19:06 Cardiac Monitoring [RC] . DIRECTED Sodium Chloride 0.9% [Saline Flush] 10 ml FLUSH ASDIRECTED PRN Peripheral IV Insertion Adult [OM.PC] Stat 08/22/20 19:07 EKG Documentation Completion [RC] STAT Peripheral IV Care [RC] . DIRECTED 08/22/20 21:00 Sodium Chloride 0.9% [Normal Saline] 100 ml IV ASDIRECTED Sodium Chloride 0.9% [Saline Flush] 10 ml FLUSH BOLUS 08/22/20 21:04 Sodium Chloride 0.9% [Saline Flush] 10 ml FLUSH ASDIRECTED PRN Peripheral IV Insertion Adult [OM.PC] Routine 08/22/20 21:05 Peripheral IV Care [RC] . DIRECTED 08/22/20 21:54 CULTURE BLOOD [BC] Stat CULTURE BLOOD [BC] Stat LACTIC ACID [CHEM] Stat Blood Culture x2 Reflex Set [OM.PC] Stat 08/22/20 22:00 Sodium Chloride 0.9% [Normal Saline] 1,000 ml IV ASDIRECTED - Assessment/Plan Last 24 Hours: My Active Orders 08/22/20 19:06 Cardiac Monitoring [RC] . DIRECTED Sodium Chloride 0.9% [Saline Flush] 10 ml FLUSH ASDIRECTED PRN Peripheral IV Insertion Adult [OM.PC] Stat 08/22/20 19:07 EKG Documentation Completion [RC] STAT Peripheral IV Care [RC] . DIRECTED 08/22/20 21:00 Sodium Chloride 0.9% [Normal Saline] 100 ml IV ASDIRECTED Sodium Chloride 0.9% [Saline Flush] 10 ml FLUSH BOLUS 08/22/20 21:04 Sodium Chloride 0.9% [Saline Flush] 10 ml FLUSH ASDIRECTED PRN Peripheral IV Insertion Adult [OM.PC] Routine 08/22/20 21:05 Peripheral IV Care [RC] . DIRECTED 08/22/20 21:54 CULTURE BLOOD [BC] Stat CULTURE BLOOD [BC] Stat LACTIC ACID [CHEM] Stat Blood Culture x2 Reflex Set [OM.PC] Stat 08/22/20 22:00 Sodium Chloride 0.9% [Normal Saline] 1,000 ml IV ASDIRECTED
[2020-08-22] MEDS ORDERED: Iopamidol 755 Mg/ML 100 ML Bottle IVPUSH ONE (20:48)
[2020-08-22] MEDS ORDERED: Sodium Chloride 0.9% 100 ML IV SCH (21:00)
[2020-08-22] MEDS ORDERED: Sodium Chloride 0.9% 10 ML Syringe FLUSH SCH (21:00)
--- NOTE | 2020-08-22 21:07 | CT ---
Head CT Technique: Multiple axial sections through the brain were obtained. Intravenous contrast was not utilized. Reconstructed coronal and sagittal images were obtained. Comparison: No prior intracranial imaging is available. Findings: Ventricles along with basal cisterns and sulci over the convexities are within normal limits for the patient's age. No abnormal parenchymal densities are seen. No evidence of intracranial hemorrhage is seen. No midline shift or mass-effect is seen. Bone window settings were reviewed. Visualized mastoid sinuses are clear. There is minimal mucosal thickening within the ethmoid and frontal sinuses. No acute calvarial abnormality is seen. Impression: 1. Minimal mucosal thickening within the ethmoid and frontal sinuses which is believed to be incidental. 2. No acute intracranial abnormality is appreciated. Diagnostic code #2
--- NOTE | 2020-08-22 21:08 | CT ---
CT chest Technique: Multiple axial sections through the chest were obtained. Intravenous contrast was utilized. Study has been performed as a pulmonary angiogram protocol. Comparison: Prior CT chest study of 08/06/20. Findings: Pulmonary arteries are are somewhat less than optimally opacified. No filling defects within the main or segmental branches or proximal subsegmental branches are seen to indicate pulmonary embolism. Very distal pulmonary emboli could easily be missed. Thoracic aorta shows no aneurysm. Mediastinum and hilar region show no adenopathy. No axillary adenopathy is seen. Small portion of the visualized upper abdominal structures show nothing acute. Lung window settings were reviewed show mild atelectasis within the lingula. No acute parenchymal change is otherwise seen within either lung. Bone window settings were reviewed which show no acute osseous finding. Impression: 1. Slightly less than optimal opacification of the pulmonary arteries. No definite findings of pulmonary embolism are seen within the main, segmental or proximal subsegmental arteries. Smaller distal subsegmental pulmonary emboli could be missed. 2. Mild atelectasis seen within lingula. 3. Nothing acute is otherwise seen on CT study of the chest. Diagnostic code #2
[2020-08-22] MEDS ORDERED: HYDROmorphone 0.5 MG/0.5 ML Syringe IVPUSH ONE (21:12)
[2020-08-22] MEDS ORDERED: methylPREDNISolone Sodium Succinate 125 MG/2 ML SDV IVPUSH ONE (21:49)
[2020-08-22] MEDS ORDERED: Sodium Chloride 0.9% 1,000 ML IV SCH (22:00)
[2020-08-22] MEDS ORDERED: HYDROmorphone 1 MG/ML Syringe IVPUSH ONE (22:28)
== END 2020-08-22 23:15 ==
LOC: JD.ED 18:00
DX: R50.9 Fever, unspecified (principal); G44.89 Other headache syndrome; N28.9 Disorder of kidney and ureter, unspecified; R79.89 Other specified abnormal findings of blood chemistry; I10 Essential (primary) hypertension; E03.9 Hypothyroidism, unspecified; E66.9 Obesity, unspecified; Z68.30 Body mass index [BMI] 30.0-30.9, adult; Z20.822 Contact with and (suspected) exposure to COVID-19; Z87.891 Personal history of nicotine dependence
CPT/HCPCS: 36415; 70450; 71275; 80053; 83605; 83880; 84484; 85025; 85379; 85610; 85652; 85730; 86140; 87040; 87635; 93005; 96374; 96375; 96376; 99285; J1170; J2930; J7030; Q9967; 87077; 87186; U0002

== ENCOUNTER 2022-09-06 01:07 | Emergency (ER) | payer BC, OTHER ==
[2022-09-06 01:35] LABS: APPEARANCE,URINE CLEAR (Clear); BILIRUBIN,URINE NEGATIVE (Negative); COLOR,URINE YELLOW (Yellow); GLUCOSE,URINE NEGATIVE (Negative); KETONES,URINE NEGATIVE (Negative); LEUKOCYTE ESTERASE,URINE NEGATIVE (Negative); NITRITE,URINE NEGATIVE (Negative); OCCULT BLOOD,URINE 2+ (Negative); PROTEIN,URINE NEGATIVE (Negative); UROBILINOGEN,URINE 0.2 (0.2-1.0)
[2022-09-06 01:43] LABS: BACTERIA,URINE RARE /hpf (FEW); EPITHELIAL CELLS,URINE NOT SEEN /hpf (0-5); HYALINE CASTS,URINE 0-5 /lpf (0-5); WBC,URINE 0-5 /hpf (0-5)
[2022-09-06 01:44] LABS: MUCUS,URINE FEW /hpf (FEW)
[2022-09-06 01:45] LABS: BASOPHILS ABSOLUTE AUTO 0.03 K/mm3 (0.01-0.08); BASOPHILS PERCENT AUTO 0.5 % (0.1-1.2); EOSINOPHILS ABSOLUTE AUTO 0.11 K/mm3 (0.04-0.54); EOSINOPHILS PERCENT AUTO 1.7 (0.8-7.0); HEMATOCRIT 45.6 % (40.1-51.0); HEMOGLOBIN 15.3 gm/dl (13.7-17.5); IMMATURE GRAN ABSOLUTE AUTO 0.02 K/mm3 (0.00-0.10); IMMATURE GRAN PERCENT AUTO 0.3 % (<=1.0); LYMPHOCYTES ABSOLUTE AUTO 1.23 K/mm3 (1.32-3.57); LYMPHOCYTES PERCENT AUTO 19.2 % (21.8-53.1); MEAN CORPUSCULAR HEMOGLOBIN 27.4 pg (25.7-32.2); MEAN CORPUSCULAR HGB CONC 33.6 g/dl (32.2-35.5); MEAN CORPUSCULAR VOLUME 81.7 fl (79.0-92.2); MEAN PLATELET VOLUME 10.2 fl (9.4-12.3); MONOCYTES ABSOLUTE AUTO 0.66 K/mm3 (0.30-0.82); MONOCYTES PERCENT AUTO 10.3 % (5.3-12.2); NEUTROPHILS ABSOLUTE AUTO 4.37 K/mm3 (1.78-5.38); PLATELET COUNT,PLT 197 K/mm3 (163-337); RED BLOOD CELL COUNT 5.58 M/mm3 (4.63-6.08); WHITE BLOOD CELL COUNT,WBC 6.42 K/mm3 (4.23-9.07)
[2022-09-06] MEDS ORDERED: Iopamidol 612 MG/ML 100 ML Bottle IVPUSH ONE (01:46)
[2022-09-06 02:05] LABS: INR 1.87; PROTHROMBIN TIME 19.1 SECONDS (9.7-12.0)
[2022-09-06 02:15] LABS: ALBUMIN 3.8 g/dl (3.4-5.0); ANION GAP 13.3 (5-15); BILIRUBIN TOTAL 0.5 mg/dL (0.2-1.0); BUN/CREATININE RATIO 14.2 (14-18); CALCIUM 9.1 mg/dL (8.5-10.1); CREATININE 1.2 mg/dL (0.7-1.3); EST CRCL DRUG DOSING (CG) 73.65 mL/min; POTASSIUM,K 3.3 mEq/L (3.5-5.1); PROTEIN TOTAL,TP 7.7 g/dl (6.4-8.2)
== END 2022-09-06 04:24 | disposition home or self-care (01) ==
LOC: JD.ED 01:07
DX: R31.9 Hematuria, unspecified (principal); I10 Essential (primary) hypertension; K21.9 Gastro-esophageal reflux disease without esophagitis; E03.9 Hypothyroidism, unspecified; E66.9 Obesity, unspecified; Z68.41 Body mass index [BMI] 40.0-44.9, adult; Z88.8 Allergy status to other drugs, medicaments and biological substances; Z79.899 Other long term (current) drug therapy
CPT/HCPCS: 36415; 74177; 80053; 81001; 85025; 85610; 86850; 86900; 86901; 99284; Q9967

== ENCOUNTER 2024-05-21 10:53 | Emergency (ER) | payer BC ==
[2024-05-21] MEDS ORDERED: Sodium Chloride 0.9% 10 ML Syringe FLUSH PRN (11:35)
[2024-05-21] MEDS: Sodium Chloride 0.9% 1,000 ML IV STA (11:49)
[2024-05-21 12:00] LABS: BASOPHILS ABSOLUTE AUTO 0.1 K/mm3 (0.0-0.2); BASOPHILS PERCENT AUTO 1.3 % (0.0-1.0); EOSINOPHILS ABSOLUTE AUTO 0.2 K/mm3 (0.0-0.4); EOSINOPHILS PERCENT AUTO 3.5 % (0.0-6.0); HEMATOCRIT 46.3 % (42.0-52.0); HEMOGLOBIN 15.7 gm/dl (14.0-18.0); IMMATURE GRAN ABSOLUTE AUTO 0.01 K/mm3 (0.00-0.05); IMMATURE GRAN PERCENT AUTO 0.2 % (0.0-0.4); LYMPHOCYTES ABSOLUTE AUTO 1.6 K/mm3 (1.0-4.8); LYMPHOCYTES PERCENT AUTO 30.2 % (24.0-44.0); MEAN CORPUSCULAR HEMOGLOBIN 27.5 pg (28.0-32.0); MEAN CORPUSCULAR HGB CONC 33.9 g/dl (32.0-36.0); MEAN CORPUSCULAR VOLUME 81.1 fl (83.0-99.0); MEAN PLATELET VOLUME 10.3 fl (9.4-12.4); MONOCYTES ABSOLUTE AUTO 0.6 K/mm3 (0.0-0.8); MONOCYTES PERCENT AUTO 10.6 % (0.0-8.0); NEUTROPHILS ABSOLUTE AUTO 2.8 K/mm3 (1.8-7.7); NEUTROPHILS PERCENT AUTO 54.2 % (41.0-71.0); PLATELET COUNT,PLT 182 K/mm3 (150-400); RED BLOOD CELL COUNT 5.71 M/mm3 (4.52-5.90)
[2024-05-21 12:31] LABS: ALBUMIN 3.7 g/dl (3.4-5.0); ANION GAP 15.5 (5-15); BILIRUBIN TOTAL 0.4 mg/dL (0.2-1.0); BUN/CREATININE RATIO 18.2 (14-18); CALCIUM 8.5 mg/dL (8.5-10.1); CREATININE 1.1 mg/dL (0.7-1.3); EST CRCL DRUG DOSING (CG) 78.56 mL/min; MAGNESIUM 1.9 mg/dL (1.8-2.4); PROTEIN TOTAL,TP 7.4 g/dl (6.4-8.2); TSH 3.703 uIU/mL (0.358-3.74)
[2024-05-21 12:32] LABS: POTASSIUM,K 3.5 mEq/L (3.5-5.1)
== END 2024-05-21 13:30 | disposition home or self-care (01) ==
LOC: JD.ED 10:53
DX: I48.0 Paroxysmal atrial fibrillation (principal); R53.83 Other fatigue; I10 Essential (primary) hypertension; E03.9 Hypothyroidism, unspecified; E66.9 Obesity, unspecified; Z86.16 Personal history of COVID-19; Z79.890 Hormone replacement therapy; Z79.899 Other long term (current) drug therapy; Z79.01 Long term (current) use of anticoagulants; Z79.82 Long term (current) use of aspirin; Z88.5 Allergy status to narcotic agent; Z88.8 Allergy status to other drugs, medicaments and biological substances; Z68.41 Body mass index [BMI] 40.0-44.9, adult
CPT/HCPCS: 36415; 71046; 80053; 83735; 84443; 84484; 85025; 93005; 93246; 99285; J7030; 93010